=== PATIENT | female | born 1990 | race Caucasian/White ===

== ENCOUNTER 2017-03-01 15:43 | Emergency (ER) | payer MEDICAID ==
[~2017-03-01] VITALS: Ht 160 cm; Wt 98.0 kg
[2017-03-01 21:41] VITALS: BP 117/73
== END 2017-03-01 21:41 | disposition home or self-care (01) ==
LOC: ED 15:43
DX: M54.5 Low back pain (principal); R10.2 Pelvic and perineal pain; G43.909 Migraine, unspecified, not intractable, without status migrainosus
CPT/HCPCS: 87491; 87591; J1885

== ENCOUNTER 2017-04-12 10:21 | Emergency (ER) | payer MEDICAID ==
[2017-04-12 12:55] VITALS: BP 122/81
== END 2017-04-12 12:56 | disposition home or self-care (01) ==
LOC: ED 10:21
DX: S63.612A Unspecified sprain of right middle finger, initial encounter (principal); S63.614A Unspecified sprain of right ring finger, initial encounter; X58.XXXA Exposure to other specified factors, initial encounter; Y93.89 Activity, other specified; Y99.8 Other external cause status; Y92.89 Other specified places as the place of occurrence of the external cause

== ENCOUNTER 2017-05-22 19:14 | Emergency (ER) | payer MEDICAID ==
[~2017-05-22] VITALS: Ht 167.6 cm; Wt 99.3 kg
[2017-05-22 19:54] VITALS: Ht 167.6 cm; Wt 99.3 kg
[2017-05-22 23:52] LABS: UA SPECIFIC GRAVITY 1.025 (1.005-1.035); microscopic required? YES; urine erythrocyte 1+ (NEGATIVE)
[2017-05-23 00:50] VITALS: BP 109/68
== END 2017-05-23 00:50 | disposition home or self-care (01) ==
LOC: ED 19:14
PROVIDERS: Emergency Medicine
DX: R10.32 Left lower quadrant pain (principal); N39.0 Urinary tract infection, site not specified; G43.909 Migraine, unspecified, not intractable, without status migrainosus
CPT/HCPCS: J1885; Q0162

== ENCOUNTER 2017-05-28 20:03 | Emergency (ER) | payer MEDICAID ==
[~2017-05-28] VITALS: Ht 160 cm; Wt 98.9 kg
[2017-05-28 20:57] VITALS: BP 132/84; Ht 160 cm; Wt 98.9 kg
== END 2017-05-28 23:33 | disposition home or self-care (01) ==
LOC: ED 20:03
DX: G43.909 Migraine, unspecified, not intractable, without status migrainosus (principal)

== ENCOUNTER 2017-10-01 00:09 | Emergency (ER) | payer MEDICAID ==
[~2017-10-01] VITALS: Ht 160 cm; Wt 102.0 kg
[2017-10-01 00:18] VITALS: Ht 160 cm; Wt 102.0 kg
[2017-10-01 01:45] VITALS: BP 123/74
== END 2017-10-01 01:45 | disposition home or self-care (01) ==
LOC: ED 00:09
DX: M54.31 Sciatica, right side (principal); N39.0 Urinary tract infection, site not specified
CPT/HCPCS: J2270; Q0162

== ENCOUNTER 2018-04-15 08:43 | Emergency (ER) | payer MEDICAID ==
[~2018-04-15] VITALS: Ht 162.6 cm; Wt 103.4 kg
[2018-04-15 08:55] VITALS: Ht 162.6 cm; Wt 103.4 kg
[2018-04-15 11:02] VITALS: BP 122/56
== END 2018-04-15 11:02 | disposition home or self-care (01) ==
LOC: ED 08:43
DX: M54.31 Sciatica, right side (principal); G43.909 Migraine, unspecified, not intractable, without status migrainosus
CPT/HCPCS: J2270; Q0162

== ENCOUNTER 2018-06-24 12:56 | Emergency (ER) | payer MEDICAID ==
[~2018-06-24] VITALS: Ht 160 cm; Wt 101.6 kg
[2018-06-24 13:11] VITALS: Ht 160 cm; Wt 101.6 kg
[2018-06-24 13:51] LABS: BASOPHIL % 0.6 % (0-2); PLATELET COUNT 175 x10^3mcL (130-400)
[2018-06-24 13:57] LABS: CALCIUM 8.9 mg/dL (8.5-10.1); CARBON DIOXIDE 25.3 mmol/L (21-32); CHLORIDE SERUM 102 mmol/L (98-107); CREATININE SERUM 0.6 mg/dL (0.6-1.0); GFR1 > 60 mL/min; GLUCOSE SERUM 132 mg/dL (74-106); POTASSIUM SERUM 3.5 mmol/L (3.5-5.1); RED CELL DISTRIBUTION WIDTH 15.6 % (11.5-14.5); SODIUM SERUM 138 mmol/L (136-145)
[2018-06-24 14:02] LABS: ALBUMIN 3.6 g/dL (3.4-5.0); ALKALINE PHOSPHATASE 91 U/L (46-116); ALT/SGPT 25 U/L (14-59); AST/SGOT 18 U/L (15-37); BILIRUBIN TOTAL 0.22 mg/dL (0.20-1.00); TOTAL PROTEIN, SERUM 7.7 g/dL (6.4-8.2)
[2018-06-24 14:53] VITALS: BP 131/75
== END 2018-06-24 14:53 | disposition home or self-care (01) ==
LOC: ED 12:56
PROVIDERS: Emergency Medicine
DX: R25.2 Cramp and spasm (principal); G43.909 Migraine, unspecified, not intractable, without status migrainosus; M54.30 Sciatica, unspecified side
CPT/HCPCS: 36415; 85378; J1885

== ENCOUNTER 2018-09-20 07:24 | Emergency (ER) | payer OTHER ==
[~2018-09-20] VITALS: Ht 160 cm; Wt 103.9 kg
[2018-09-20 07:33] VITALS: Ht 160 cm; Wt 103.9 kg
[2018-09-20 08:39] LABS: BASOPHIL % 0.3 % (0-2); PLATELET COUNT 164 x10^3mcL (130-400)
[2018-09-20 08:40] LABS: RED CELL DISTRIBUTION WIDTH 15.2 % (11.5-14.5)
[2018-09-20 08:48] LABS: CALCIUM 8.7 mg/dL (8.5-10.1); CARBON DIOXIDE 24.6 mmol/L (21-32); CHLORIDE SERUM 103 mmol/L (98-107); CREATININE SERUM 0.6 mg/dL (0.6-1.0); GFR1 > 60 mL/min; GLUCOSE SERUM 88 mg/dL (74-106); POTASSIUM SERUM 3.8 mmol/L (3.5-5.1); SODIUM SERUM 136 mmol/L (136-145)
[2018-09-20 08:52] LABS: ALKALINE PHOSPHATASE 74 U/L (46-116); ALT/SGPT 18 U/L (14-59); AST/SGOT 12 U/L (15-37); BILIRUBIN TOTAL 0.36 mg/dL (0.20-1.00)
[2018-09-20 08:53] LABS: ALBUMIN 3.1 g/dL (3.4-5.0)
[2018-09-20 10:59] VITALS: BP 130/78
== END 2018-09-20 11:00 | disposition home or self-care (01) ==
LOC: ED 07:24
PROVIDERS: Emergency Medicine
DX: O20.0 Threatened abortion (principal); O26.891 Other specified pregnancy related conditions, first trimester; R21 Rash and other nonspecific skin eruption; G43.909 Migraine, unspecified, not intractable, without status migrainosus; M54.30 Sciatica, unspecified side
CPT/HCPCS: 36415

== ENCOUNTER 2019-01-01 00:53 | Emergency (ER) | payer OTHER ==
[~2019-01-01] VITALS: Ht 160 cm; Wt 100.7 kg
[2019-01-01 00:56] VITALS: Ht 160 cm; Wt 100.7 kg
[2019-01-01 01:26] VITALS: BP 120/73
== END 2019-01-01 01:26 | disposition home or self-care (01) ==
LOC: ED 00:53
DX: O26.892 Other specified pregnancy related conditions, second trimester (principal); M25.561 Pain in right knee; G43.909 Migraine, unspecified, not intractable, without status migrainosus; Z98.890 Other specified postprocedural states; Z3A.20 20 weeks gestation of pregnancy